=== PATIENT | male | born 1940 | race Two or more races ===

== ENCOUNTER → 2016-10-20 | Outpatient (CLI) | payer OTHER ==
[~2016-10-20] MED LIST: REGADENOSON 0.4 MG/5 ML DISP.SYRIN. IV ONE
--- NOTE | 2016-10-20 15:00 | RAD ---
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 DUE TO PT INTERNAL ANATOMY V LEADS PLACED TO THE RIGHT CHEST Consent: The procedure was explained to the patient in lay terms. Informed consent was witnessed. Fausto eout was entered into [employer]. History and Stress Test performed by RT Rosa M (R) (N) Pharm. Details Pharmacologic stress testing was performed using 0.4mg per 5ml of regadenoson given intravenously ove r 7-10 seconds. Stress Symptoms NONE STATED. POST EXERCISE Max HR: 89 bpm Max Blood Pressure: 143/72mmHg Chest Pain: No. Arrhythmia: No. ST Change: No. INTERPRETATION Stress EKG Conclusion: Baseline EKG showed sinus rhythm. No ischemic changes at peak stress. No arr hythmias. Imaging Protocol IMAGE PROTOCOL: Rest Tc-99m/stress Tc-99m 1 day Rest: Stress: Viability: Radiopharm.Tc99m [id number] Sestamibi Dose10.6mCi 34.5mCi Duration 15min. 10min. Img Date 10/20/2016 10/20/2016 Inj-Img [id number]. 90min. Rest Admin Site:IV - Left HandAdministrator:RT Valerie (R)(N) Stress Admin Site: IV - Left HandAdministrator: RT Rosa M (Unruly)(N) STRESS DATA End Diast. Vol.45.0mlAv. Heart Rate77.0bpm End Syst. Vol.13.0mlCO Index BSA0.0L/min Myocardial Mass88.0gEject. Ahbnkgut64.0% Stress Rates Pk. Fill Rate2.63EDV/secLVtime Pk. Fill 172.66msec Pk. Empty Rate3.15ESV/secLVtime Pk. Eject72.31msec 03/30 Pk. Fill0.73EDV/sec Stress Scores Regional WT1.00Summed WT1.00 Regional WM1.00Summed WM9.00 Study quality was good. Left Ventricular size was Normal at Rest and Stress. Lung uptake was Normal. Left Ventricular ejection fraction is 71%. The rest and stress images show normal perfusion, normal contraction and thickening. LV Perf. Quant 17 Seg. SSS2.00 17 Seg. SRS2.00 17 Seg. SDS0.00 Stress Defect Extent (% LAD)0.60Rest Defect Extent (% LAD)3.80Rev. Defect Extent (% LAD)0.00 Stress Defect Extent (% LCX) 0.00Rest Defect Extent (% LCX)0.00Rev. Defect Extent (% LCX)0.00 Stress Defect Extent (% RCA)0.00Rest Defect Extent (% RCA)2.20Rev. Defect Extent (% RCA)0.00 Stress Defect Extent (% JANINA)1.70Rest Defect Extent (% JANINA)4.60Rev. Defect Extent (% JANINA)0.00 Conclusion 1. Regadenoson cardioisotope stress test did not show any evidence of ischemia or infarct. 2. Normal left ventricular systolic function with ejection fraction calculated at 71%. 3. Low risk for cardiac events.
== END | disposition home or self-care (01) ==
LOC: NM 08:08
PROVIDERS: ATTEND Internal Medicine Cardiovascular Disease
DX: Q24.0 Dextrocardia (principal); R06.09 Other forms of dyspnea
CPT/HCPCS: 78452; 93017; 96374; 96375; 96376; A9500; J2785

== ENCOUNTER → 2020-05-15 | Outpatient (CLI) | payer MEDICARE ==
--- NOTE | 2020-05-15 16:39 | RAD ---
MR#: [id number] Date of Study: 05/15/2020 Ordering Physician: FROY GORMAN Referring Physician: EMILEE KAHN Tech: RT Rosa M (R) (N) APPROVED REPORT Test Type: Pharmacological Stress Nurse/Tech: Hayley Davidson RN Test Indications: Dyspnea on exertion, dextrocardia Cardiac History: HTN, See EMR. Medications: See EMR. Medical History: See EMR. Resting ECG: SR Resting Heart Rate: 78 bpm Resting Blood Pressure: 150/87mmHg Pretest Chest Pain: No chest pain Nurse/Tech Notes Lungs CTA, Heart tones regular. Consent: The procedure was explained to the patient in lay terms. Informed consent was witnessed. Fausto eout was entered into [employer]. History and Stress Test performed by TACOS Mahmood Pharm. Details Pharmacologic stress testing was performed using 0.4mg per 5ml of regadenoson given intravenously ove r 7-10 seconds. Stress Symptoms No chest pain or symptoms. POST EXERCISE Reason for Termination: Infusion complete Max HR: 90 bpm Max Blood Pressure: 182/101mmHg Blood Pressure response to exercise: Normal blood pressure response during stress. Heart Rate response to exercise: WNL Chest Pain: No. Arrhythmia: No. INTERPRETATION Stress EKG Conclusion: The resting EKG shows a sinus rhythm with nonspecific ST-T wave changes. The stress EKG shows no significant changes from baseline. Abnormal resting EKG but no EKG evidence of stress-induced ischemia. Imaging Protocol IMAGE PROTOCOL: Rest Tc-99m/stress Tc-99m 1 day Rest: Stress: Viability: Radiopharm.Tc99m QcafegyzmTh90f Sestamibi Dose10.6mCi 31.2mCi Duration 13min. 13min. Img Date 05/15/2020 05/15/2020 Inj-Img Aqlm20cav. 60min. Rest Admin Site:IV - Right HandAdministrator:RT Rosa M (R)(N) Stress Admin Site: IV - Right HandAdministrator: TACOS Mahmood STRESS DATA End Diast. Vol.46.0mlLVEDV index BSA24.0ml End Syst. Vol.5.0mlLVESV index BSA2.0ml Myocardial Mass94.0gEject. Eculhpvy76.0% Stress Scores Regional WT0.00Summed WT0.00 Regional WM0.00Summed WM0.00 LV Perfusion The stress images show no significant defects. The rest images show no significant defects. Nuclear imaging shows no reversible ischemia or infarct . Wall Motion Left ventricular systolic function is normal with an ejection fraction of greater than 70%. LV Perf. Quant 17 Seg. SSS2.00 17 Seg. SRS6.00 17 Seg. SDS0.00 Stress Defect Extent (% LAD)0.00Rest Defect Extent (% LAD)0.00Rev. Defect Extent (% LAD)0.00 Stress Defect Extent (% LCX) 31.30Rest Defect Extent (% LCX)71.30Rev. Defect Extent (% LCX)10.00 Stress Defect Extent (% RCA)0.00Rest Defect Extent (% RCA)0.00Rev. Defect Extent (% RCA)0.00 Stress Defect Extent (% JANINA)5.40Rest Defect Extent (% JANINA)12.80Rev. Defect Extent (% JANINA)1.70 Conclusion 1. Abnormal baseline EKG but no EKG evidence of stress-induced ischemia. 2. Nuclear imaging shows no reversible ischemia or infarct. 3. Normal left ventricular systolic function with an ejection fraction of greater than 70%. 4. Low risk Lexiscan nuclear stress test. Signed by : Maxim Alvarez MD Electronically Approved : 05/15/2020 16:39:13
--- NOTE | 2020-05-16 10:20 | CARD ---
MR#: [id number] Date of Study: 05/15/2020 Ordering Physician: FROY GORMAN, Referring Physician: FROY GORMAN Tech: Aide Meek RDCS APPROVED REPORT EXAM: Two-dimensional and M-mode echocardiogram with Doppler and color Doppler. Other Information Quality : Technically Limited Technically limited study due to body habitus/dextrocardia INDICATION Dextrocardia 2D DIMENSIONS RVDd2.5 (2.9-3.5cm)Left Atrium(2D)3.1 (1.6-4.0cm) IVSd1.3 (0.7-1.1cm)Aortic Root(2D)2.6 (2.0-3.7cm) LVDd3.6 (3.9-5.9cm)LVOT Diameter1.9 (1.8-2.4cm) PWd1.2 (0.7-1.1cm)LVDs2.6 (2.5-4.0cm) FS (%) 27.9 %SV29.4 ml LVEF(%)55.1 (>50%) Aortic Valve AoV Peak Andrade.133.6cm/sAoV VTI27.0cm AO Peak GR.7.1mmHgLVOT Peak Andrade.90.6cm/s AO Mean GR.4mmHgAVA (VMAX)1.88cm2 TERESSA (VTI)2.00cm2 Mitral Valve MV E Iziaopxe80.2cm/sMV DECEL [id number] MV A Dbpoymmr636.0cm/sE/A Ratio0.7 Tricuspid Valve TR P. Mrqahkgg757at/sRAP BVBVTEYT7oeTg TR Peak Gr.10bzEqGZXC02ctLe Pulmonary Vein S1 Xmkatyxa09.6cm/sD2 Qdwveqly00.4cm/s LEFT VENTRICLE The left ventricle is normal size. There is mild concentric left ventricular hypertrophy. The left ve ntricular systolic function is normal and the ejection fraction is within normal range. The Ejection Fraction is 55-60%. There is normal LV segmental wall motion. Transmitral Doppler flow pattern is Gra de I-abnormal relaxation pattern. RIGHT VENTRICLE The right ventricle is normal size. The right ventricular systolic function is normal. ATRIA The left atrium size is normal. The right atrium size is normal. The interatrial septum is intact wit h no evidence for an atrial septal defect or patent foramen ovale as noted on 2-D or Doppler imaging. AORTIC VALVE The aortic valve is not well visualized but appears to be functioning normally by Doppler interrogati on. Doppler and Color Flow revealed no significant aortic regurgitation. There is no significant aort ic valvular stenosis. MITRAL VALVE The mitral valve is calcified but opens well. There is no evidence of mitral valve prolapse. There is no mitral valve stenosis. Doppler and Color-flow revealed trace mitral regurgitation. TRICUSPID VALVE The tricuspid valve is normal in structure and function. Doppler and Color Flow revealed trace tricus pid regurgitation. The PA pressure was estimated at 23 mmHg. There is no tricuspid valve stenosis. PULMONIC VALVE The pulmonic valve is not well visualized. Doppler and Color Flow revealed no pulmonic valvular regur gitation. There is no pulmonic valvular stenosis. GREAT VESSELS The aortic root is normal in size. The ascending aorta is not well seen. The IVC is normal in size an d collapses >50% with inspiration. PERICARDIAL EFFUSION There is no evidence of significant pericardial effusion. Critical Notification Critical Value: No <Conclusion> The left ventricle is normal size. The left ventricular systolic function is normal and the ejection fraction is within normal range. The Ejection Fraction is 55-60%. There is mild concentric left ventricular hypertrophy. Doppler and Color Flow revealed no significant aortic regurgitation. There is no significant aortic valvular stenosis. Doppler and Color-flow revealed trace mitral regurgitation. Doppler and Color Flow revealed trace tricuspid regurgitation. The PA pressure was estimated at 23 mmHg. Signed by : Maxim Alvarez MD Electronically Approved : 05/16/2020 10:20:00
== END ==
LOC: ECHO 07:53
PROVIDERS: ATTEND Internal Medicine Cardiovascular Disease
DX: I05.8 Other rheumatic mitral valve diseases (principal); I11.9 Hypertensive heart disease without heart failure; Q24.0 Dextrocardia
CPT/HCPCS: 78452; 93017; 93306; A9500; J2785